=== PATIENT | male | born 1960 | race Caucasian/White ===

== ENCOUNTER 2016-11-13 12:04 | Emergency (ER) | payer BC ==
[2016-11-13 12:36] VITALS: BP 125/57
--- NOTE | 2016-11-13 12:59 | UC ---
UC General HPI - HPI Summary HPI Summary: patient has irritation on the right upper back where he has had shingles in the past. he has a cough and noticed blood tinged sputum this morning. - History of Current Complaint Chief Complaint: UCRespiratory Stated Complaint: SINUS COMPLAINT,COUGH Time Seen by Provider: 11/13/16 12:35 Hx Obtained From: Patient Onset/Duration: Sudden Onset, Lasting Days Timing: Constant Onset Severity: Mild Current Severity: Mild Associated Signs & Symptoms: Positive: Cough - Allergy/Home Medications Allergies/Adverse Reactions: Allergies Allergy/AdvReac Type Severity Reaction Status Date / Time Codeine AdvReac Intermediate STOMACH Verified 11/13/16 12:36 BLOATS PMH/Surg Hx/FS Hx/Imm Hx Previously Healthy: Yes Endocrine History Of: Reports: Diabetes Denies: Thyroid Disease Cardiovascular History Of: Reports: Cardiac Disorders - [place] x2, Hypertension Denies: Pacemaker/ICD, Congestive Heart Failure, Deep Vein Thrombosis Respiratory History Of: Denies: Asthma GI/ History Of: Reports: Ulcer - gastric, Kidney Stones Denies: Gastrointestinal Bleed, Gall Bladder Disease Neurological History Of: Denies: TIA, CVA, Dementia, Seizures, Migraine Other History Of: Anticoagulant Therapy - Surgical History Surgical History: Yes Surgery Procedure, Year, and Place: CARDIAC STENT X 8. RT ORIF ankle AND TIBIA. LT CLAVICLE ORIF. vasectomy. sinus surgeries x2 - Family History Known Family History: Positive: Cardiac Disease - Social History Alcohol Use: Rare Alcohol Amount: a few beers on the weekens Substance Use Type: None Smoking Status (MU): Former Smoker Type: Cigarettes Amount Used/How Often: 1.5 ppd Length of Time of Smoking/Using Tobacco: 20 + yrs Have You Smoked in the Last Year: No When Did the Patient Quit Smoking/Using Tobacco: 1996 - Immunization History Most Recent Influenza Vaccination: [id number] Most Recent Tetanus Shot: W/IN LAST 10 Most Recent Pneumonia Vaccination: NONE Review of Systems Constitutional: Negative Skin: Negative Eyes: Negative ENT: Negative Respiratory: Shortness Of Breath, Cough Gastrointestinal: Negative Genitourinary: Negative Motor: Negative Neurovascular: Other - irritation on back Musculoskeletal: Negative Neurological: Negative Psychological: Negative All Other Systems Reviewed And Are Negative: Yes Physical Exam Triage Information Reviewed: Yes Appearance: Well-Appearing, Well-Nourished, Pain Distress Vital Signs: Initial Vital Signs Temp 98.4 F 11/13/16 12:26 Pulse 51 11/13/16 12:26 Resp 16 11/13/16 12:26 BP 125/57 11/13/16 12:26 Pulse Ox 96 11/13/16 12:26 Vital Signs Reviewed: Yes Eye Exam: Normal Eyes: Positive: Conjunctiva Clear ENT Exam: Normal ENT: Positive: Normal ENT inspection, Hearing grossly normal, Pharynx normal, TMs normal Dental Exam: Normal Neck exam: Normal Neck: Positive: Supple, Nontender, No Lymphadenopathy Respiratory: Positive: Chest non-tender, No respiratory distress, No accessory muscle use, Wheezing, Inspiration Cardiovascular Exam: Normal Cardiovascular: Positive: RRR, No Murmur, Pulses Normal Abdominal Exam: Normal Abdomen Description: Positive: Nontender, No Organomegaly, Soft Bowel Sounds: Positive: Present Musculoskeletal Exam: Normal Musculoskeletal: Positive: Strength Intact, ROM Intact, No Edema Neurological Exam: Normal Neurological: Positive: Alert, Muscle Tone Normal Psychological Exam: Normal Skin: Positive: Other - no rashed or erythema noted, no pain with palpation over the right upper back. Course/Dx - Course Course Of Treatment: hx obtained, exam performed, meds reviewed, prednisone given for infallmation reduction of bronchioles and possible neuritis of past shingles - Differential Dx - Multi-Symptom Provider Diagnoses: wheezing. nerve pain. hx of shingles Discharge - Discharge Plan Condition: Stable Disposition: HOME Prescriptions: Albuterol HFA INHALER* [Ventolin HFA Inhaler*] 2 puff INH Q4H PRN #1 mdi PRN Reason: Cough predniSONE TAB* [Deltasone TAB*] 40 mg PO DAILY #10 tab Patient Education Materials: Wheezing (ED) Referrals: Bia Whyte MD [Primary Care Provider] - Additional Instructions: Take the medication as prescribed. increase your fluid intake and get plenty of rest.
== END 2016-11-13 13:07 | disposition home or self-care (01) ==
LOC: UCCORT 12:04
DX: R06.2 Wheezing (principal); M79.2 Neuralgia and neuritis, unspecified; R21 Rash and other nonspecific skin eruption; Z86.19 Personal history of other infectious and parasitic diseases; I25.2 Old myocardial infarction; I10 Essential (primary) hypertension; Z95.5 Presence of coronary angioplasty implant and graft; Z88.5 Allergy status to narcotic agent; Z87.891 Personal history of nicotine dependence
CPT/HCPCS: 99212; G0463

== ENCOUNTER 2017-09-01 11:23 | Emergency (ER) | payer BC ==
[2017-09-01 11:49] VITALS: BP 135/64
--- NOTE | 2017-09-01 13:00 | UC ---
Complaint Male HPI - HPI Summary HPI Summary: c/o frequency, pain in testicles, pelvic area but no dysuria, denies fever/ chills - History of Current Complaint Chief Complaint: UCGU Stated Complaint: URINARY Time Seen by Provider: 09/01/17 12:58 Hx Obtained From: Patient Onset/Duration: Sudden Onset Timing: Constant Severity Initially: Mild Severity Currently: Mild Location: Groin Aggravating Factor(s): Voiding Associated Signs And Symptoms: Positive: Negative - Allergies/Home Medications Allergies/Adverse Reactions: Allergies Allergy/AdvReac Type Severity Reaction Status Date / Time Codeine AdvReac Intermediate STOMACH Verified 09/01/17 11:49 BLOATS PMH/Surg Hx/FS Hx/Imm Hx Previously Healthy: Yes Endocrine History: Diabetes, Dyslipidemia Cardiovascular History: Cardiac Disease, Hypertension GI/ History: Gastroesophageal Reflux Other History Of: Anticoagulant Therapy - Surgical History Surgical History: Yes Surgery Procedure, Year, and Place: CARDIAC STENT X 8. RT ORIF ankle AND TIBIA. LT CLAVICLE ORIF. vasectomy. sinus surgeries x2 - Family History Known Family History: Positive: Cardiac Disease - Social History Alcohol Use: Rare Alcohol Amount: a few beers on the weekens Substance Use Type: None Smoking Status (MU): Former Smoker Type: Cigarettes Amount Used/How Often: 1.5 ppd Length of Time of Smoking/Using Tobacco: 20 + yrs Have You Smoked in the Last Year: No When Did the Patient Quit Smoking/Using Tobacco: 1996 - Immunization History Most Recent Influenza Vaccination: [id number] Most Recent Tetanus Shot: W/IN LAST 10 Most Recent Pneumonia Vaccination: NONE Review of Systems Skin: Negative Eyes: Negative ENT: Negative Respiratory: Negative Cardiovascular: Negative Gastrointestinal: Abdominal Pain Genitourinary: Frequency, Vaginal/Penile Pain Neurological: Negative Psychological: Negative Is Patient Immunocompromised?: No All Other Systems Reviewed And Are Negative: Yes Physical Exam Triage Information Reviewed: Yes Appearance: Well-Appearing Vital Signs: Initial Vital Signs Temp 98.4 F 09/01/17 11:45 Pulse 44 09/01/17 11:45 Resp 16 09/01/17 11:45 BP 135/64 09/01/17 11:45 Pulse Ox 98 09/01/17 11:45 Vital Signs Reviewed: Yes Respiratory Exam: Normal Abdominal Exam: Normal Bowel Sounds: Positive: Present Psychological Exam: Normal Skin Exam: Normal Complaint Male Course/Dx - Course Course Of Treatment: take abx 3 days as directed - discussed use and common side effects of med. increase fluid intake dialy to prevent dehydration. urine dip + blood and leukocytes. f/u if symptoms not resolving - Differential Dx/Diagnosis Provider Diagnoses: UTI Discharge - Discharge Plan Condition: Good Disposition: HOME Prescriptions: Sulfamethox/Trimethoprim DS* [Bactrim DS 800/160 TAB*] 1 tab PO BID 3 Days #6 tab Patient Education Materials: Urinary Tract Infection in Men (ED) Referrals: Bia Whyte MD [Primary Care Provider] - 1 Week
== END 2017-09-01 14:14 | disposition home or self-care (01) ==
LOC: UCCORT 11:23
DX: N39.0 Urinary tract infection, site not specified (principal); Z72.89 Other problems related to lifestyle; Z87.891 Personal history of nicotine dependence
CPT/HCPCS: 81003; 99212; G0463

== ENCOUNTER 2018-03-26 11:39 | Emergency (ER) | payer BC ==
[2018-03-26 12:06] VITALS: BP 101/44
--- NOTE | 2018-03-26 12:17 | UC ---
General HPI - HPI Summary HPI Summary: Patient is accompanied by his . He is complaining of 2 day history of cough with a little yellow sputum. Yesterday, he developed a subjective fever with chills and body aches. He admits to feeling short of breath but notes that any type of exertion makes him extremely short of breath. He also reports extreme fatigue and admits to occasional wheezing. He denies any history of asthma or COPD. He denies any associated chest pain. He admits to some mild swelling to his lower legs which she describes as chronic and unchanged. Patient is a known diabetic but didn't check his blood sugar this morning. This past medical history is also significant for unstable angina, hypertension and hyperlipidemia. 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 - History of Current Complaint Stated Complaint: COUGH/FEVER Time Seen by Provider: 03/26/18 12:01 Hx Obtained From: Patient, Family/Leak Hunter Onset/Duration: Gradual Onset Timing: Constant Associated Signs & Symptoms: Positive: Cough, Edema - chronic, Fever - subjective, SOB, Wheezing. Negative: Chest Pain, Nausea - Allergy/Home Medications Allergies/Adverse Reactions: Allergies Allergy/AdvReac Type Severity Reaction Status Date / Time codeine Allergy See Comment Verified 03/26/18 11:58 Home Medications: Home Medications guaiFENesin LIQ* [Robitussin*] 10 ml PO Q4H PRN 03/26/18 [History Confirmed ] PMH/Surg Hx/FS Hx/Imm Hx - Additional Past Medical History Additional PMH: DVT, CARLOS, PVC's Endocrine History: Diabetes, Dyslipidemia Cardiovascular History: Cardiac Disease, Hypertension Other History Of: Anticoagulant Therapy - Surgical History Surgical History: Yes Surgery Procedure, Year, and Place: CARDIAC STENT X 8. RT ORIF ankle AND TIBIA. LT CLAVICLE ORIF. vasectomy. sinus surgeries x2 - Family History Known Family History: Positive: Cardiac Disease - Social History Lives: With Family Alcohol Use: Rare Alcohol Amount: a few beers on the weekens Substance Use Type: None Smoking Status (MU): Former Smoker Type: Cigarettes Amount Used/How Often: 1.5 ppd Length of Time of Smoking/Using Tobacco: 20 + yrs Have You Smoked in the Last Year: No When Did the Patient Quit Smoking/Using Tobacco: 1996 - Immunization History Most Recent Influenza Vaccination: [id number] Most Recent Tetanus Shot: W/IN LAST 10 Most Recent Pneumonia Vaccination: NONE Vaccination Up to Date: Yes Review of Systems Constitutional: Fever, Chills, Fatigue Skin: Negative Eyes: Negative ENT: Negative Respiratory: Shortness Of Breath, Cough Cardiovascular: Negative Gastrointestinal: Negative Genitourinary: Negative Motor: Negative Neurovascular: Negative Musculoskeletal: Myalgia Neurological: Negative Psychological: Negative All Other Systems Reviewed And Are Negative: Yes Physical Exam Triage Information Reviewed: Yes Appearance: Well-Appearing Vital Signs Reviewed: Yes Eyes: Positive: Conjunctiva Clear ENT: Positive: Pharynx normal, Nasal congestion, TMs normal Neck: Positive: Supple, Nontender, No Lymphadenopathy, Other: - No JVD Respiratory: Positive: Lungs clear, Normal breath sounds, No respiratory distress Cardiovascular: Positive: RRR, No Murmur Abdomen Description: Positive: Nontender, No Organomegaly, Soft Bowel Sounds: Positive: Present Musculoskeletal: Positive: Edema @ - Mild to BLE'S(pt notes chronic with no change) Neurological: Positive: Alert Psychological: Positive: Age Appropriate Behavior Skin Exam: Normal Diagnostics - Laboratory Diagnostic Studies Completed/Ordered: non fasting 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 - Radiology No standard instances Radiology Interpretation Completed By: Radiologist - RIGHT MIDDLE LOBE INFILTRATE. - EKG Cardiac Rate: NL Cardiac Rhythm: Sinus: Normal Ectopy: PVCs - occasional ST Segment: Normal EKG Comparison: No Significant Change - 03/29/16 except for some pvc's Course/Dx - Course Course Of Treatment: Pneumonia RML on cxr. given comobid conditions, will transfer to ER. EMS offered but pt declined despite risk of mva, delay of care , worsening, disability and . he is a&o x3 and able to refuse and go by car thus I must respect this. [facility] ER called and report given to Dr Finley including CAD, DM and pneumonia with dyspnea. - Differential Dx - Multi-Symptom Provider Diagnoses: RML pneumonia. Dyspnea. Hx DM. Hx CAD with angina. Discharge - Sign-Out/Discharge Documenting (check all that apply): Patient Departure - Discharge Plan Condition: Stable Disposition: TRANS HIGHER LVL OF CARE FAC Referrals: Bia Whyte MD [Primary Care Provider] - Additional Instructions: GO FROM HERE TO THE [facility] DISCUSSED. - Billing Disposition and Condition Condition: STABLE Disposition: Trans Higher Lvl of Care Fac
--- NOTE | 2018-03-26 12:49 | RAD ---
INDICATION: Short of breath COMPARISON: Chest x-ray March 29, 2016 TECHNIQUE: PA and lateral dual-energy views were obtained. FINDINGS: Bones/Soft Tissues: There are no acute bony findings. There is ORIF of a left clavicular fracture, unchanged Cardiomediastinal: The cardiomediastinal silhouette is normal. Lungs: There is an interstitial infiltrate in the right middle lobe. The remaining lung ball are clear Pleura: There are no pleural effusions. Other: None IMPRESSION: RIGHT MIDDLE LOBE INFILTRATE.
== END 2018-03-26 13:07 | disposition short-term general hospital (02) ==
LOC: UCCORT 11:39
DX: J18.9 Pneumonia, unspecified organism (principal); R06.00 Dyspnea, unspecified; E11.9 Type 2 diabetes mellitus without complications; Z86.79 Personal history of other diseases of the circulatory system; I10 Essential (primary) hypertension; Z88.5 Allergy status to narcotic agent; I82.409 Acute embolism and thrombosis of unspecified deep veins of unspecified lower extremity; Z79.01 Long term (current) use of anticoagulants; Z87.891 Personal history of nicotine dependence
CPT/HCPCS: 71046; 93005; 99212; G0463

== ENCOUNTER 2018-06-02 13:52 | Emergency (ER) | payer BC ==
--- OUTSIDE RECORDS SUMMARY | 2018-06-02 14:05 | XMS REPORT ---
:1960 External Reference #:[id number] Author Organization [facility] 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 Ashley Wetzel, Active [facility] MSN, DIRECTOR OF LABOR RELATIONS Onset: 11/19/2015 Essential hypertension Ashley Wetzel, Active MSN, DIRECTOR OF LABOR RELATIONS Onset: 08/13/2012 Morbid obesity Ashley Wetzel, Active MSN, DIRECTOR OF LABOR RELATIONS Onset: 08/08/2011 Angina pectoris Konrad Johnston M.D., Active [facility] Onset: 05/10/2011 Cellulitis and abscess of lower Konrad Johnston M.D., Active limb FACC Onset: 05/10/2011 Dyspnea Konrad Johnston M.D., Active [facility]ACC Onset: 05/10/2011 Hyperlipidemia Konrad Johnston M.D., Active [facility] Onset: 05/10/2011 Benign essential hypertension Konrad Johnston M.D., Active FACC Onset: 05/10/2011 Coronary arteriosclerosis Konrad Johnston M.D., Active [facility] Family History Date Family Member(s) Problem(s) Comments : (age 65 Years) Father due to CAD Social History Type Date Description Comments Lives With Betty Chapa Patient follows no dietary restrictions Occupation Currently Working [employer] Independent with all ADL's Cigarette Use Former Cigarette Smoker 2 Packs Daily quit 10 years ago Cigarette Use Pack Years - 25 ETOH Use Occasionally consumes alcohol Daily Caffeine Consumes on average 2 cups of regular coffee per day Allergies, Adverse Reactions, Alerts Date Description Reaction Status Severity Comments 11/17/2008 Codeine/Acetaminophen active 07/27/2014 Codeine active Medications Medication Date Status Form Strength Qnty SIG Indications Ordering Provider Atorvastatin Active Tablets 80mg 90tabs 1 by E78.5 Wetzel, Calcium 017 mouth Ashley every [place], day MSN, DIRECTOR OF LABOR RELATIONS Nitroglycerin Active Patches 0.4mg/HR 90unit Apply I25.119 Kannan Johnston 24HR s For 12 Konrad Geronimo, Hours/Of M.DBinu, [facility] f For 12 Hours During The Day Isosorbide Active Tablets 20mg 180tab Take 1 I25.119 Preston Mononitrate 016 s Tablet Konrad Geronimo, Twice A M.DBinu, [facility] Day Aspirin Active Tablets 325mg 1 po qd R07.9 Wetzel, 011 ECTOR Salguero, DIRECTOR OF LABOR RELATIONS I25.119 782.0 Ranexa 12/22/2010 Active Tablets 1000mg 180tabs take one 786.51 Wetzel, ER 12HR tablet by Ashley mouth Reymundo, twice A MSN, DIRECTOR OF LABOR RELATIONS day Multivitamins Active Tablets 1 po qd Unknown Plavix Active Tablets 75mg 90tabs 1 po qd Unknown Bisoprolol Active Tablets 5mg 90tabs 1 po qd Wetzel, Fumarate ECTOR Salguero, DIRECTOR OF LABOR RELATIONS Meloxicam Active Tablets 15mg 30tabs 1 by Unknown mouth every day c food Ramipril Active Capsules 5mg 1 by I25.119 Damari, mouth Ashley every day ECTOR Dwyer, DIRECTOR OF LABOR RELATIONS Metformin HCL Active Tablets 500mg 1 tab by Unknown mouth twice a day Magnesium Oxide Active Tablets 400mg 1 by Unknown mouth every day Pantoprazole Active Tablets 40mg 90tabs Take 1 Wetzel, Sodium DR Tablet Ashley Daily ECTOR Dwyer, DIRECTOR OF LABOR RELATIONS Nitrostat Active Tablets 0.4mg 1 tab sl Unknown Sub every 5 min x3 chest pain prn Amoxicillin 08/16/2017 Hx Capsules 500mg 14caps 1 tab by J98.9 Wetzel, mouth Ashley twice a katarzyna Dwyer, DIRECTOR OF LABOR RELATIONS Atorvastatin 06/26/2016 - Hx Tablets 40mg 90tabs 1 by E78.5 Damari, Calcium 12/20/2016 mouth Ashley every day ECTOR Dwyer, DIRECTOR OF LABOR RELATIONS Nitro-Dur 04/03/2016 Hx Patches 0.4mg/H 14units on 12 hr/ Johana JohnstonR R off 12 haleigh Morgan M.D., [facility] during the day Isosorbide 03/27/2016 - Hx Tablets 10mg 120tabs 2 tabs by I25.119 Wetzel, Mononitrate 06/26/2016 mouth Ashley twice a katarzyna Dwyer, DIRECTOR OF LABOR RELATIONS Electronic BP 05/19/2015 Hx use once 401.1 Wetzel, Cuff daily. Ashley Dx HTN ECTOR Dwyer, DIRECTOR OF LABOR RELATIONS Isosorbide 06/12/2014 Hx Tablets 30mg 270tabs Take 2 I25.119 Davidenko, Mononitrate ER ER 24HR Tablets Konrad Geronimo By Lashell Salazar, [facility] Every Day In The Morning And 1 Tablet In The Evening as Directed 413.9 Atorvastatin 12/18/2012 Hx Tablets 80mg 90tabs Take One E78.5 Wetzel, Ashley Calcium Tablet By Lashell Dwyer, DIRECTOR OF LABOR RELATIONS Every Day Ramipril 12/18/2012 Hx Capsules 10mg 90caps Take One I25.119 Wetzel, Ashley Capsule By Lashell Dwyer, DIRECTOR OF LABOR RELATIONS Every Day Isosorbide 02/07/2012 - Hx Tablets 30mg 60tabs Take One 414.01 Preston, Dinitrate 06/12/2014 Tablet By Lashell Morgan M.D., [facility] Twice A Day 413.9 Isosorbide 01/30/2012 - Hx Tablets 20mg 1 1/2 tabs 414.01 Wetzel, Ashley Dinitrate 02/07/2012 by ECTOR Hurt, twice a day DIRECTOR OF LABOR RELATIONS 413.9 Ramipril 09/13/2011 - Hx Capsules 5mg 30caps Take One 414.01 Wetzel, Ashley 12/18/2012 Capsule By Lashell Dwyer Every [facility] Day Nitroglycerin 08/08/2011 - Hx Solution 0.4mg 1month one spray I25.119 Sinanenkita, Lingual 08/25/2016 /Spra under the nena Morgan tongue every M.DBinu, [facility] 5 min for chest pain. If not under formulary it may dispense sublingual tablets 0.4 mg Amlodipine 08/08/2011 - Hx Tablets 5mg 60tabs Take One 780.4 Preston, Besylate 05/19/2015 Tablet By Lashell Morgan Every M.DBinu, [facility] Day 401.1 Amlodipine 07/20/2011 - Hx Tablets 2.5mg 30tabs 1 tab by 786.50 Wetzel , Ashley Besylate 08/08/2011 mouth Reymundo, every day [facility] Isosorbide 12/22/2010 - Hx Tablets 20mg 60tabs Take One 414.01 Wetzel, Ashley Dinitrate 01/30/2012 Tablet By Lashell Dwyer [facility] Twice A Day 413.9 Ranexa 12/07/2010 Hx Tablets ER 500mg 60tabs 1 po 786.51 Preston, 12HR bid Konrad Geronimo M.D., [facility] Isosorbide 12/13/2009 - Hx Tablets 10mg 60tabs 1 po 786.51 Preston, Dinitrate 12/22/2010 bid Konrad Geronimo M.D., [facility] 414.01 Fexofenadine HCL Hx Tablets 60mg po qd Unknown Aspirin Ec - 07/20/[address] 81mg 1 po qd 786.50 Unknown 414.01 782.0 Naproxen Hx Tablets 500mg 60tabs 1 po bid Unknown Nexium Hx Capsules DR 40mg 90caps 1 po qd Unknown Simvastatin Hx Tablets 80mg 90tabs 1 po qd Unknown Metoprolol Hx Tablets ER 25mg 90tabs 1 po qd Unknown Succinate ER 24HR Ramipril Hx Capsules 5mg 60caps 1 po qd Unknown Nitrostat Hx Tablets Sub 0.4mg 25tabs 1 tab sl Wetzel, q 5 min Ashley x3 chest bradford Dwyer MSN, DIRECTOR OF LABOR RELATIONS Metformin HCL Hx Tablets 500mg 60tabs 1 tab po Unknown bid Simvastatin - Hx Tablets 40mg tab by 272. Damari, 12/18/2012 mouth 4 Ashley every day ECTOR Dwyer, DIRECTOR OF LABOR RELATIONS Lansoprazole Hx Capsules DR 30mg 30caps by mouth Unknown every day Clopidogrel Hx Tablets 75mg Unknown Bisulfate Lovastatin - Hx Tablets 40mg 90tabs 1 by E78. Damari, 06/26/2016 mouth 5 Ashley every day ECTOR Dwyer, DIRECTOR OF LABOR RELATIONS Isosorbide - Hx Tablets 10mg 1 by I25. Damari Mononitrate 03/27/2016 mouth 119 Ashley twice a katarzyna Dwyer MSN, DIRECTOR OF LABOR RELATIONS Vital Signs Date Vital Result Comment 05/22/2018 BP Systolic Sitting Left Arm 124 mmHg BP Diastolic Sitting Left Arm 80 mmHg Heart Rate 42 /min Respiratory Rate 18 /min Height 68 inches 5'8" Weight 301.00 lb BMI (Body Mass Index) 45.8 kg/m2 BSA (Body Surface Area) 2.43 m2 [place] body weight in kilograms 70 O2 % BldC Oximetry 97 % room air 04/29/2018 BP Systolic Sitting Left Arm 114 mmHg BP Diastolic Sitting Left Arm 86 mmHg Heart Rate 55 /min Respiratory Rate 18 /min Weight 303.00 lb O2 % BldC Oximetry 95 % Ora 02/18/2018 BP Systolic 136 mmHg left BP Diastolic 80 mmHg left Heart Rate 30 /min Respiratory Rate 19 /min Weight 300.00 lb O2 % BldC Oximetry 94 % Ra 08/16/2017 BP Systolic Sitting Right Arm 122 mmHg BP Diastolic Sitting Right Arm 66 mmHg Respiratory Rate 16 /min Height 68 inches 5'8" Weight 301.00 lb BMI (Body Mass Index) 45.8 kg/m2 BSA (Body Surface Area) 2.43 m2 [place] body weight in kilograms 70 12/20/2016 BP Systolic Sitting Left Arm 124 mmHg BP Diastolic Sitting Left Arm 86 mmHg Heart Rate 62 /min Respiratory Rate 18 /min Height 68 inches 5'8" Weight 311.00 lb BMI (Body Mass Index) 47.3 kg/m2 BSA (Body Surface Area) 2.47 m2 06/19/2016 BP Systolic Sitting Right Arm 114 mmHg BP Diastolic Sitting Right Arm 72 mmHg Heart Rate 70 /min Respiratory Rate 16 /min Height 68 inches 5'8" Weight 304.00 lb BMI (Body Mass Index) 46.2 kg/m2 BSA (Body Surface Area) 2.44 m2 [place] body weight in kilograms 70 04/03/2016 BP Systolic 110 mmHg BP Diastolic 78 mmHg Heart Rate 66 /min Respiratory Rate 18 /min Weight 302.38 lb 03/27/2016 BP Systolic 130 mmHg BP Diastolic 90 mmHg Heart Rate 65 /min Height 67 inches 5'7" Weight 304.50 lb BMI (Body Mass Index) 47.7 kg/m2 BSA (Body Surface Area) 2.42 m2 11/19/2015 BP Systolic Sitting Left Arm 112 mmHg BP Diastolic Sitting Left Arm 76 mmHg Heart Rate 52 /min Height 67 inches 5'7" Weight 303.00 lb BMI (Body Mass Index) 47.5 kg/m2 BSA (Body Surface Area) 2.41 m2 05/19/2015 BP Systolic Sitting Right Arm 114 mmHg BP Diastolic Sitting Right Arm 68 mmHg Heart Rate 68 /min Respiratory Rate 16 /min Height 68 inches 5'8" Weight 312.00 lb BMI (Body Mass Index) 47.4 kg/m2 BSA (Body Surface Area) 2.47 m2 01/05/2015 Height 68 inches 5'8" Weight 293.00 lb BMI (Body Mass Index) 44.5 kg/m2 BSA (Body Surface Area) 2.40 m2 11/11/2014 BP Systolic Sitting Right Arm 130 mmHg BP Diastolic Sitting Right Arm 64 mmHg Heart Rate 60 /min Respiratory Rate 16 /min Height 67 inches 5'7" Weight 303.00 lb BMI (Body Mass Index) 47.5 kg/m2 BSA (Body Surface Area) 2.41 m2 08/12/2014 BP Systolic Sitting Left Arm 122 mmHg BP Diastolic Sitting Left Arm 70 mmHg Heart Rate 60 /min Respiratory Rate 20 /min Height 67 inches 5'7" Weight 312.00 lb BMI (Body Mass Index) 48.9 kg/m2 BSA (Body Surface Area) 2.44 m2 06/12/2014 BP Systolic Sitting Left Arm 112 mmHg BP Diastolic Sitting Left Arm 72 mmHg Heart Rate 64 /min Respiratory Rate 16 /min Height 67 inches 5'7" Weight 303.00 lb BMI (Body Mass Index) 47.5 kg/m2 BSA (Body Surface Area) 2.41 m2 03/02/2014 BP Systolic Sitting Left Arm 110 mmHg BP Diastolic Sitting Left Arm 66 mmHg Heart Rate 74 /min Respiratory Rate 14 /min Height 67 inches 5'7" Weight 305.00 lb BMI (Body Mass Index) 47.8 kg/m2 BSA (Body Surface Area) 2.42 m2 08/19/2013 BP Systolic Sitting Right Arm 120 mmHg BP Diastolic Sitting Right Arm 84 mmHg Heart Rate 52 /min Respiratory Rate 16 /min Height 67 inches 5'7" Weight 299.00 lb BMI (Body Mass Index) 46.8 kg/m2 BSA (Body Surface Area) 2.40 m2 03/18/2013 BP Systolic Sitting Right Arm 118 mmHg BP Diastolic Sitting Right Arm 74 mmHg Heart Rate 74 /min Respiratory Rate 16 /min Height 67 inches 5'7" Weight 290.00 lb BMI (Body Mass Index) 45.4 kg/m2 BSA (Body Surface Area) 2.37 m2 12/18/2012 BP Systolic Sitting Right Arm 122 mmHg BP Diastolic Sitting Right Arm 62 mmHg Heart Rate 76 /min Respiratory Rate 16 /min Height 67 inches 5'7" Weight 293.00 lb BMI (Body Mass Index) 45.9 kg/m2 BSA (Body Surface Area) 2.38 m2 09/13/2012 BP Systolic Sitting Right Arm 136 mmHg BP Diastolic Sitting Right Arm 80 mmHg Heart Rate 80 /min Respiratory Rate 18 /min Height 67.5 inches 5'7.50" Weight 303.00 lb BMI (Body Mass Index) 46.8 kg/m2 08/13/2012 BP Systolic Sitting Left Arm 122 mmHg BP Diastolic Sitting Left Arm 76 mmHg Heart Rate 62 /min Respiratory Rate 16 /min Height 67.5 inches 5'7.50" Weight 296.00 lb BMI (Body Mass Index) 45.7 kg/m2 02/07/2012 BP Systolic Sitting Right Arm 110 mmHg BP Diastolic Sitting Right Arm 64 mmHg Heart Rate 66 /min Respiratory Rate 16 /min Height 67.5 inches 5'7.50" Weight 289.00 lb BMI (Body Mass Index) 44.6 kg/m2 01/30/2012 BP Systolic Sitting Right Arm 126 mmHg BP Diastolic Sitting Right Arm 76 mmHg Heart Rate 59 /min Respiratory Rate 16 /min Height 67.5 inches 5'7.50" Weight 289.00 lb BMI (Body Mass Index) 44.6 kg/m2 09/13/2011 BP Systolic Sitting Right Arm 126 mmHg BP Diastolic Sitting Right Arm 68 mmHg Heart Rate 88 /min Respiratory Rate 16 /min Height 67.5 inches 5'7.50" Weight 297.00 lb BMI (Body Mass Index) 45.8 kg/m2 08/08/2011 BP Systolic Sitting Left Arm 132 mmHg BP Diastolic Sitting Left Arm 68 mmHg Heart Rate 84 /min Respiratory Rate 18 /min Height 67.5 inches 5'7.50" Weight 308.00 lb BMI (Body Mass Index) 47.5 kg/m2 07/20/2011 BP Systolic Sitting Right Arm 132 mmHg BP Diastolic Sitting Right Arm 80 mmHg Heart Rate 53 /min regular Respiratory Rate 16 /min Height 67.5 inches 5'7.50" Weight 309.00 lb BMI (Body Mass Index) 47.7 kg/m2 05/10/2011 BP Systolic Sitting Left Arm 122 mmHg BP Diastolic Sitting Left Arm 78 mmHg Respiratory Rate 16 /min Height 67.5 inches 5'7.50" Weight 313.00 lb BMI (Body Mass Index) 48.3 kg/m2 01/04/2011 BP Systolic Sitting Left Arm 128 mmHg BP Diastolic Sitting Left Arm 86 mmHg Heart Rate 64 /min Respiratory Rate 18 /min Height 67.5 inches 5'7.50" Weight 319.00 lb BMI (Body Mass Index) 49.2 kg/m2 12/22/2010 BP Systolic Sitting Right Arm 120 mmHg BP Diastolic Sitting Right Arm 84 mmHg Heart Rate 68 /min Regular Respiratory Rate 18 /min Height 67.5 inches 5'7.50" Weight 320.00 lb BMI (Body Mass Index) 49.4 kg/m2 12/07/2010 BP Systolic Sitting Right Arm 150 mmHg BP Diastolic Sitting Right Arm 84 mmHg Heart Rate 56 /min Respiratory Rate 20 /min Height 67.5 inches 5'7.50" Weight 316.00 lb BMI (Body Mass Index) 48.8 kg/m2 Results Test Date Test Result H/L Range Note aPTT 02/07/2017 aPTT 27.4 s 22.0 - 32.6 Type and screen 02/07/2017 Antibody Screen Negative Patient Abo/Rh O Positive Specimen Expiration Date 02/10/2017 Testing site Performed At [address] [place] [address] [id number] Protime-Inr 02/07/2017 Inr 1.08 1 Protime 11.2 s 9.2 - 11.9 Magnesium 02/07/2017 Magnesium 1.9 mg/dL 1.7 - 2.4 Lipid panel 02/07/2017 Chol/HDL Ratio 2.9 Ratio Cholesterol 130 mg/dL 0 - 200 HDL 45 mg/dL >40 LDL Calculated 59 mg/dL <130 Triglycerides 128 mg/dL 30 - 200 Lipase 02/07/2017 Lipase 89 U/L 65 - 230 Hemoglobin A1c 02/07/2017 Est. Average Glucose 151 mg/dL Hemoglobin A1c 6.9 % High 4.0 - 6.0 Comprehensive metabolic panel 02/07/2017 Alb/Glob ratio 1.0 Ratio Albumin 3.3 g/dL Low 3.5 - 4.6 Alkaline Phosphatase 60 U/L 45 - 117 Alt 39 U/L 12 - 78 Anion Gap 6 mmol/L Low 7 - 16 Ast 17 U/L 11 - 39 BUN/Creatinine Ratio 15.0 Ratio 10.0 - 20.0 Bilirubin, Total 0.7 mg/dL 0.0 - 1.0 Calcium 8.4 mg/dL 8.4 - 10.2 Chloride 109 mmol/L High 100 - 108 Co2 28 mmol/L 22 - 31 Creatinine 1.13 mg/dL 0.80 - 1.30 GFR MDRD Af Amer >60 >59 ml/min/1.73m2 GFR MDRD Non Af Amer >60 >59 ml/min/1.73m2 Globulin 3.2 g/dL 2.7 - 4.3 Glom Filt Rate, Est See Notes Glucose 138 mg/dL High 70 - 99 Potassium 4.0 mmol/L 3.6 - 5.2 Protein, Total 6.5 g/dL 6.4 - 8.2 Sodium 143 mmol/L 136 - 145 Urea nitrogen 17 mg/dL 7 - 24 CBC and differential 02/07/2017 Basophils Absolute 0.1 10*3/uL 0.0 - 0.2 Basophils Relative 0.9 % 0.0 - 4.0 Eosinophils Absolute 0.2 10*3/uL 0.0 - 0.5 Eosinophils Relative 2.6 % 0.0 - 5.0 Hematocrit 42.8 % 41.0 - 53.0 Hemoglobin 14.8 g/dL 13.5 - 18.0 Lymphocytes Absolute 3.2 10*3/uL 1.2 - 4.8 Lymphocytes Relative 39.6 % 16.0 - 52.0 MCH 32.6 pg High 27.0 - 32.0 MCHC 34.5 g/dL 32.0 - 36.0 MCV 94.5 fL 80.0 - 95.0 MPV 7.9 fL 7.1 - 10.7 Monocytes Absolute 0.8 10*3/uL 0.0 - 0.8 Monocytes Relative 9.6 % High 0.0 - 8.0 Neutrophils % 47.3 % 35.0 - 75.0 Neutrophils Absolute 3.9 10*3/uL 1.8 - 7.7 Platelets 203 10*3/uL 150 - 450 RBC 4.53 10*6/uL Low 4.60 - 6.10 RDW 13.0 % 10.5 - 14.5 WBC 8.2 10*3/uL 4.1 - 11.0 B-type natriuretic 02/07/2017 B natriuretic peptide 128 pg/mL High 0 - 100 peptide Troponin I 02/07/2017 Troponin I <0.06 0.00 - 0.10 ng/mL LDL Cholesterol 02/02/2017 Cholesterol 110 mg/dL <200 1, 2 Profile Triglycerides 99 mg/dL <150 1, 3 HDL Cholesterol 39 mg/dL Low >40 1, 4 LDL-Cholesterol 51 mg/dL < 100 1, 5 Liver Function Tests 02/02/2017 Total Protein 6.6 g/dL 6.4-8.2 1 Albumin 3.4 g/dL 3.4-5.0 1 Globulin 3.2 g/dL 1.9-4.3 1 Alb/Glob 1.1 ratio 1 Bilirubin,Total 0.6 mg/dL 0.2-1.0 1 Bilirubin,Direct 0.2 mg/dL 0.0-0.2 1 Bilirubin,Indirect 0.4 mg/dL 0.0-0.9 1 Sgot/Ast 17 U/L 15-37 1 SGPT/Alt 39 U/L 12-78 1 Alkaline Phosphatase 62 U/L 45-117 1 Comprehensive Metabolic Panel 06/24/2016 Glucose 147 mg/dL High 74-106 6 BUN 19 mg/dL High 7-18 6 Creatinine 1.0 mg/dL 0.6-1.3 6 Glom Filtration Rate, Estimate >60 mL/min >60 6 If >60 mL/min >60 6, 7 BUN/Creat 19.0 ratio 6 Sodium 139 mmol/L 136-145 6 Potassium 4.2 mmol/L 3.5-5.1 6 Chloride 108 mmol/L High 98-107 6 Carbon Dioxide 24 mmol/L 21-32 6 Anion Gap 7 mEq/L Low 8-16 6 Calcium 8.3 mg/dL Low 8.5-10.1 6 Total Protein 6.9 g/dL 6.4-8.2 6 Albumin 3.6 g/dL 3.4-5.0 6 Globulin 3.3 g/dL 1.9-4.3 6 Alb/Glob 1.1 ratio 6 Bilirubin,Total 0.6 mg/dL 0.2-1.0 6 Sgot/Ast 16 U/L 15-37 6 SGPT/Alt 35 U/L 12-78 6 Alkaline Phosphatase 51 U/L 45-117 6 @[facility] Pat Id: [id number] @[facility] Req #: [id number] 6 Is Patient Fasting? Fasting 6 Magnesium 06/24/2016 Magnesium 2.2 mg/dL 1.8-2.4 6 @[facility] Pat Id: [id number] 6 @[facility] Req #: [id number] 6 Is Patient Fasting? Fasting 6 CBS W/Automated Diff 06/24/2016 White Blood Count 5.7 K/uL 3.4-10.5 6 Red Blood Count 4.63 M/uL 4.20-5.80 6 Hemoglobin 15.4 gm/dL 12.8-17.0 6 Hematocrit 43.1 % 38.0-48.0 6 Mean Cell Volume 93.1 fl 80.0-96.0 6 Mean Corpuscular HGB 33.3 pg High 27.0-33.0 6 Mean Corpuscular HGB Conc 35.7 g/dL 31.7-36.0 6 Platelet Count 202 K/uL 150-400 6 Red Cell Distri Width SD 40.6 fl 36-51 6 Red Cell Distri Width %CV 12.2 % 11.6-15.8 6 Mean Platelet Volume 10.2 fL 6.6-10.6 6 Neut% 49.5 % 33.0-73.0 6 Lymph % 32.6 % 17.0-56.0 6 Sawyer % 11.0 % High 0.0-10.0 6 Eo% 6.0 % High 0.0-5.0 6 Bas% 0.9 % 0.1-1.0 6 Neut# 2.83 K/uL 1.8-7.0 6 Lymph # 1.86 K/uL 1.8-7.0 6 Sawyer # 0.63 K/uL 0.0-0.8 6 Eos # 0.34 K/uL 0.0-0.5 6 Baso # 0.05 K/uL Low 0.1-0.2 6 @[facility] Pat Id: [id number] 6 @[facility] Req #: [phone] 6 LDL Cholesterol Profile 06/24/2016 Cholesterol 163 mg/dL <200 6, 8 Triglycerides 123 mg/dL <150 6, 9 HDL Cholesterol 50 mg/dL >40 6, 10 LDL-Cholesterol 88 mg/dL < 100 6, 11 @[facility] Pat Id: [id number] 6 @[facility] Req #: [id number] 6 Is Patient Fasting? Fasting 6 Laboratory test finding 07/28/2014 Laboratory Results < 0.02 - Laboratory test finding 07/27/2014 Laboratory Results 2.25 1.2 - 4.0 Laboratory test finding 07/21/2014 Laboratory Results 6.8 High 4.2 - 6.3 LDL Cholesterol Profile 08/15/2012 Cholesterol 166 mg/dL 120-200 Triglycerides 147 mg/dL 16-231 HDL Cholesterol 43 mg/dL 29-83 LDL-Cholesterol 94 mg/dL 62-185 CBS W/Automated Diff 08/15/2012 White Blood Count 8.0 K/uL 3.4-10.5 Red Blood Count 4.67 M/uL 4.20-5.80 Hemoglobin 15.3 gm/dL 12.8-17.0 Hematocrit 42.2 % 38.0-48.0 Mean Cell Volume 90.4 fl 80.0-96.0 Mean Corpuscular HGB 32.8 pg 27.0-33.0 Mean Corpuscular HGB Conc 36.3 g/dL High 31.7-36.0 Platelet Count 283 K/uL 150-400 Red Cell Distri Width SD 39.1 fl 36-51 Red Cell Distri Width %CV 12.2 % 11.6-15.8 Mean Platelet Volume 9.5 fL 6.6-10.6 Neut% 54.9 % 33.0-73.0 Lymph % 32.0 % 17.0-56.0 Sawyer % 9.6 % 0.0-10.0 Eo% 3.0 % 0.0-5.0 Bas% 0.5 % 0.1-1.0 Neut# 4.41 K/uL 1.8-7.0 Lymph # 2.57 K/uL 1.2-4.0 Sawyer # 0.77 K/uL High 0.0-0.6 Eos # 0.24 K/uL 0.0-0.5 Baso # 0.04 K/uL Low 0.1-0.2 Liver Function Tests 08/15/2012 Total Protein 7.7 g/dL 6.3-8.0 Albumin 4.4 g/dL 3.5-5.0 Globulin 3.3 g/dL 1.9-4.3 Alb/Glob 1.3 ratio Bilirubin,Total 0.7 mg/dL 0.2-1.2 Bilirubin,Direct 0.1 mg/dL 0.1-0.4 Bilirubin,Indirect 0.6 mg/dL 0.0-0.9 Sgot/Ast 22 U/L 16-40 SGPT/Alt 38 U/L 30-65 Alkaline Phosphatase 55 U/L 50-136 Basic Metabolic Panel 08/15/2012 Glucose 113 mg/dL 76-115 BUN 19 mg/dL 5-23 Creatinine 0.8 mg/dL 0.5-1.4 Glom Filtration Rate, Estimate >60 mL/min >60 If >60 mL/min >60 12 BUN/Creat 23.7 ratio Sodium 136 mmol/L 136-145 Potassium 4.1 mmol/L 3.5-5.1 Chloride 103 mmol/L 98-107 Carbon Dioxide 24 mEq/L 18-29 Anion Gap 13 mEq/L 8-16 Calcium 9.3 mg/dL 8.5-10.1 1 E78.5 2 Reference Guidelines*: Desirable: ........... < 200 mg/dL Borderline High: ..... 200-239 mg/dL High: ................ >=240 mg/dL * The National Cholesterol Education Program (NCEP) 3 Reference Guidelines*: Normal: ............. < 150 mg/dL Borderline High: .... 150-199 mg/dL High: ............... 200-499 mg/dL Very High: .......... > 500 mg/dL * Source: National Cholesterol Education Program (NCEP) 4 Reference Guidelines*: Low HDL: ..... < 40 mg/dL Normal: ..... 40-60 mg/dL Desirable: ... > 60 mg/dL *The National Cholesterol Education Program(NCEP) 5 Reference Guidelines*: Optimal:........... <100 mg/dL Near Optimal....... 100-129 mg/dL Borderline High.... 130-159 mg/dL High............... 160-189 mg/dL Very High.......... >=190 mg/dL * Source: National Cholesterol Education Program (NCEP) 6 I25.10 I10 7 Note: Persistent reduction for 3 months or more in an eGFR <60 mL/min/1.73 m2 defines CKD. Patients with eGFR values >/=60 mL/min/1.73 m2 may also have CKD if evidence of persistent proteinuria is present. The original MDRD equation for estimated GFR is not valid for patients less than 18 years of age. Additional information may be found at www.kdoqi.org. 8 Reference Guidelines*: Desirable: ........... < 200 mg/dL Borderline High: ..... 200-239 mg/dL High: ................ >=240 mg/dL * The National Cholesterol Education Program (NCEP) 9 Reference Guidelines*: Normal: ............. < 150 mg/dL Borderline High: .... 150-199 mg/dL High: ............... 200-499 mg/dL Very High: .......... > 500 mg/dL * Source: National Cholesterol Education Program (NCEP) 10 Reference Guidelines*: Low HDL: ..... < 40 mg/dL Normal: ..... 40-60 mg/dL Desirable: ... > 60 mg/dL *The National Cholesterol Education Program(NCEP) 11 Reference Guidelines*: Optimal:........... <100 mg/dL Near Optimal....... 100-129 mg/dL Borderline High.... 130-159 mg/dL High............... 160-189 mg/dL Very High.......... >=190 mg/dL * Source: National Cholesterol Education Program (NCEP) 12 Note: Persistent reduction for 3 months or more in an eGFR <60 mL/min/1.73 m2 defines CKD. Patients with eGFR values >/=60 mL/min/1.73 m2 may also have CKD if evidence of persistent proteinuria is present. The original MDRD equation for estimated GFR is not valid for patients less than 18 years of age. Additional information may be found at www.kdoqi.org. Procedures Date CPT Code Description Status 04/29/2018 81497 EKG-Tracing And Report Completed 02/18/2018 83626 EKG-Tracing And Report Completed 08/16/2017 07713 EKG-Tracing And Report Completed 04/24/2017 46844 EKG Interpretation And Report Only Completed 04/24/2017 01035 EKG Interpretation And Report Only Completed 06/23/2016 27691 Echocardiogram Complete Completed 03/27/2016 22005 EKG-Tracing And Report Completed 01/05/2015 46479 Nerve Conduction 7-8 Studies Completed 01/05/2015 03702 Needle Electromyography Complete, Five Or More Muscles Completed Studied 08/03/2014 08310 Stress Test Interpre And Report Only Completed 08/03/2014 02519 Stress Test Physician Super Only Completed 08/03/2014 90870 Stress Test Physician Super Only Completed 08/03/2014 71391 Myocardial Imaging Tomographic Multiple Study AT Rest Completed Or Stress 06/12/2014 03643 EKG-Tracing And Report Completed 12/18/2012 17561 EKG-Tracing And Report Completed 09/13/2012 69939 EKG-Tracing And Report Completed 01/30/2012 60884 EKG-Tracing And Report Completed 08/08/2011 02337 EKG-Tracing And Report Completed 07/20/2011 71638 EKG-Tracing And Report Completed 07/17/2011 31847 EKG Interpretation And Report Only Completed 12/14/2010 36366 Stress Test Interpre And Report Only Completed 12/14/2010 77910 Stress Test Physician Super Only Completed 12/14/2010 70830 Myocardial Imaging Tomographic Multiple Study AT Rest Completed Or Stress 12/07/2010 50658 EKG-Tracing And Report Completed 07/23/2009 32044 Echocardiogram Complete Completed 03/26/2008 38311 Stress Test Interpre And Report Only Completed 03/26/2008 18582 Ejection Fraction Completed 03/26/2008 67106 Myocardial Wall Motion Completed 03/26/2008 51353 Cardiolite Stress/Rest Spect Completed 02/08/2007 73228 Nasal Endoscopy, Diag. Completed Encounters Type Date Location Provider CPT E/M Dx Office Visit 05/22/2018 3:00p Cardiology Office Ashley Wetzel 55323 I49.3 Reymundo, ECTOR, DIRECTOR OF LABOR RELATIONS R00.1 I25.119 E78.5 I10 Office Visit 04/29/2018 3:20p Cardiology Office Ashley Wetzel, 21393 I49.3 MSN, DIRECTOR OF LABOR RELATIONS I25.10 E78.5 Office Visit 02/18/2018 3:20p Cardiology Office Ashley Wetzel, 59672 I25.10 MSN, DIRECTOR OF LABOR RELATIONS E78.5 I10 I49.3 Office Visit 08/16/2017 3:20p Cardiology Office Ashley Wetzel, 96232 J98.9 MSN, DIRECTOR OF LABOR RELATIONS I25.10 E78.5 I10 Office Visit 12/20/2016 8:00a Cardiology Office Ashley Wetzel, 79271 I25.10 MSN, DIRECTOR OF LABOR RELATIONS E78.5 I10 R42 G47.8 E66.01 Office Visit 06/19/2016 3:00p Cardiology Office Ashley Wetzel, 00451 I25.10 MSN, DIRECTOR OF LABOR RELATIONS E78.5 I10 K21.9 R01.1 Office Visit 04/03/2016 8:00a Cardiology Office Konrad Johnston, 64279 I25.10 Marie, FACC E78.5 I10 E66.01 Office Visit 03/27/2016 1:40p Cardiology Office Ashley Wetzel 59249 I25.119 Reymundo, MSN, DIRECTOR OF LABOR RELATIONS E78.5 I10 E66.01 Office Visit 11/19/2015 8:30a Cardiology Office Ashley Wetzel 16470 I25.119 Reymundo, MSN, DIRECTOR OF LABOR RELATIONS E78.5 I10 E66.01 Office Visit 05/19/2015 1:40p Cardiology Office Ashley Wetzel Reymundo, 38958 780.4 MSN, DIRECTOR OF LABOR RELATIONS 413.9 414.01 272.4 401.1 780.56 278.01 Office Visit 12/07/2014 5:56p Cardiology Office Konrad Johnston 32033 786.50 MKaylee, [facility] Office Visit 12/07/2014 3:49p [facility] Anthony Larsen M.D. 74722 786.50 [facility] Office Visit 11/11/2014 1:40p Cardiology Office Kari Wetzela 68376 413.9 Reymundo, ECTOR, DIRECTOR OF LABOR RELATIONS 414.01 272.4 401.1 780.56 Office Visit 08/12/2014 11:00a Cardiology Office Konrad Johnston 17259 413.9 MBinuDBinu, FAC 414.01 272.4 401.1 Office Visit 07/27/2014 1:25p Cardiology [place] [address] 786.50 Office Visit 06/12/2014 3:20p Cardiology Office Konrad Johnston 07553 414.01 M.DBinu, FACC 413.9 272.4 401.1 278.01 Office Visit 03/02/2014 2:20p Cardiology Office WetzelAshley 46845 414.01 MSN, DIRECTOR OF LABOR RELATIONS 272.4 401.1 278.01 780.56 Office Visit 08/19/2013 10:10a Cardiology Office Konrad Johnston 49753 414.01 M.DBinu, FACC 278.01 401.1 Office Visit 03/18/2013 11:20a Cardiology Office Konrad Johnston 04163 414.01 M.D., FACC 401.1 272.4 278.01 780.56 Office Visit 12/18/2012 1:20p Cardiology Office Ashley Wetzel Reymundo, 12708 414.01 MSN, DIRECTOR OF LABOR RELATIONS 401.1 272.4 278.01 Office Visit 11/21/2012 9:04a Cardiology Office Konrad Johnston, 19141 413.9 M.D., FACC Office Visit 09/13/2012 2:00p Cardiology Office Konrad Johnston, 74115 413.9 M.D., FACC 414.01 401.1 272.4 Office Visit 08/13/2012 1:00p Cardiology Office WetzelAshley, 72583 413.9 MSN, DIRECTOR OF LABOR RELATIONS 414.01 401.1 272.4 278.01 Office Visit 02/07/2012 11:40a Cardiology Office Konrad Johnston, 12466 413.9 M.DBinu, FACC 414.01 401.1 272.4 Office Visit 01/30/2012 2:20p Cardiology Office WetzelAshley, 02636 413.9 MSN, DIRECTOR OF LABOR RELATIONS 414.01 401.1 272.4 278.01 Office Visit 09/13/2011 1:00p Cardiology Office WetzelAshley, 05918 413.9 MSN, DIRECTOR OF LABOR RELATIONS 414.01 401.1 272.4 278.01 Office Visit 08/08/2011 1:40p Cardiology Office Konrad Johnston, 51231 414.01 MBinuDBinu, FACC 401.1 272.4 413.9 Office Visit 07/20/2011 1:20p Cardiology Office Ashley Wetzel, 14792 786.50 MSN, DIRECTOR OF LABOR RELATIONS 782.0 414.01 401.1 272.4 Office Visit 05/10/2011 1:20p Cardiology Office Konrad Johnston, 99818 414.01 M.DBinu, FACC 401.1 272.4 786.05 682.6 Office Visit 01/04/2011 1:40p Cardiology Office Ashley Wetzel, 39865 786.51 MSN, DIRECTOR OF LABOR RELATIONS 414.01 401.1 272.4 785.9 Office Visit 12/22/2010 1:00p Cardiology Office Ashley Wetzel, 30055 786.51 MSN, DIRECTOR OF LABOR RELATIONS 414.01 401.1 272.4 785.9 Office Visit 12/07/2010 11:20a Cardiology Office Konrad JohnstonBinu, 35453 786.51 M.D., FACC 414.01 401.1 272.4 Office Visit 12/11/2008 9:30a Cardiology Office Alok Johnstonclovis Geronimo, 97578 786.51 M.D., FACC 414.01 Office Visit 11/17/2008 9:15a Cardiology Office PrestonKonrad, 83802 413.9 M.D., FACC 414.01 401.1 272.4 Office Visit 05/20/2008 1:45p Cardiology Office SinanmariaKonrad, 97110 414.01 M.D., FACC 401.1 272.4 Office Visit 04/15/2008 11:30a Cardiology Office PrestonKonrad, 01991 414.01 M.D., FACC 786.51 Office Visit 04/30/2007 1:00p Operating Room Albin Gasca M.D. 05333 472.0 473.2 473.0 Office Visit 02/08/2007 2:00p Operating Room Albin Gasca M.D. 45064 472.0 473.0 Plan of Care Future Appointment(s):08/22/2018 3:20 pm - Ashley Wetzel, MSN, DIRECTOR OF LABOR RELATIONS at Cardiology Bvkpcb8205/22/2018 - Ashley Wetzel, ECTOR, FNPI49.3 Ventricular premature depolarizationComments:Will monitor. No changes.R00.1 Bradycardia, unspecifiedComments:Monitor.I25.119 Athscl heart disease of [place] cor art w unsp ang pctrsComments:No changes.E78.5 Hyperlipidemia, unspecifiedComments:No changes.I10 Essential (primary) hypertensionComments:No changes.AllFollow up: Keep August as planned.
[2018-06-02 15:05] VITALS: BP 117/75
--- NOTE | 2018-06-02 15:18 | UC ---
Skin Complaint HPI - HPI Summary HPI Summary: Hit ponce a week ago and having trouble with it healing. No fever. - History of Current Complaint Stated Complaint: RIGHT LOWER LEG SKIN COMPLAINT Hx Obtained From: Patient Onset/Duration: Sudden Onset, Lasting Weeks - 09/11, Still Present Skin Exposure Onset/Duration: Weeks Ago - 09/11 Onset Severity: Mild Current Severity: None Pain Intensity: 0 Location: Discrete - right anterior ponce Aggravating Factor(s): Nothing Alleviating Factor(s): Nothing Associated Signs & Symptoms: Positive: Rash - right anterior ponce Related History: Trauma - bumped ponce - Allergy/Home Medications Allergies/Adverse Reactions: Allergies Allergy/AdvReac Type Severity Reaction Status Date / Time codeine Allergy See Comment Verified 06/02/18 14:50 Review of Systems Skin: Rash - purple discoloration on the right anterior ponce. Respiratory: Shortness Of Breath - over the last several months. 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 Is Patient Immunocompromised?: No All Other Systems Reviewed And Are Negative: Yes PMH/Surg Hx/FS Hx/Imm Hx Endocrine History: Diabetes Cardiovascular History: Cardiac Disease, Hypertension Other History Of: Anticoagulant Therapy - Surgical History Surgical History: Yes Surgery Procedure, Year, and Place: CARDIAC STENT X 8. RT ORIF ankle AND TIBIA. LT CLAVICLE ORIF. vasectomy. sinus surgeries x2 - Family History Known Family History: Positive: Cardiac Disease - Social History Occupation: Disabled Lives: With Family Alcohol Use: Rare Alcohol Amount: a few beers on the weekends Substance Use Type: None Smoking Status (MU): Former Smoker Type: Cigarettes Amount Used/How Often: 1.5 ppd Length of Time of Smoking/Using Tobacco: 20 + yrs Have You Smoked in the Last Year: No When Did the Patient Quit Smoking/Using Tobacco: 1996 - Immunization History Most Recent Influenza Vaccination: [id number] Most Recent Tetanus Shot: W/IN LAST 10 Most Recent Pneumonia Vaccination: NONE Vaccination Up to Date: Yes Physical Exam Triage Information Reviewed: Yes Appearance: Well-Appearing, No Pain Distress, Obese Vital Signs: Initial Vital Signs Temp 97.9 F 06/02/18 14:52 Pulse 37 06/02/18 14:52 Resp 18 06/02/18 14:52 BP 117/75 06/02/18 14:52 Pulse Ox 97 06/02/18 14:52 Vital Signs Reviewed: Yes Eyes: Positive: Conjunctiva Clear Neck exam: Normal Respiratory Exam: Normal Cardiovascular: Negative: RRR - bigeminy Musculoskeletal: Positive: Edema @ - bilateral 2+ pretibial edema. Neurological Exam: Normal Psychological Exam: Normal Skin: Positive: rashes - violaceous discoloration right anterior ponce. 1.5cm ulcer/ open wound. Course/Dx - Differential Diagnoses - Skin Complaint Differential Diagnoses: Allergic Reaction, Cellulitis, Erythema Multiforme, Impetigo - Diagnoses Provider Diagnoses: Necrobiosis lipoidica diabecorum. Venous stasis ulcer/ open wound right lower leg. edema legs. Discharge - Sign-Out/Discharge Documenting (check all that apply): Patient Departure All imaging exams completed and their final reports reviewed: No Studies - Discharge Plan Condition: Stable Disposition: HOME Prescriptions: Compress.stocking,Knee,Reg,Lrg [Relief Knee Open Toe] 1 each MC DAILY #2 each Mupirocin 2% OINT* [Bactroban 2 % Oint*] 1 applic TOPICAL BID #1 tube Patient Education Materials: Stasis Dermatitis (ED), Chronic Wound Care (ED) Referrals: Bia Whyte MD [Primary Care Provider] - 5 Days (recheck the wound) Additional Instructions: Use the antibiotic ointment with telfa, changing twice a day. Keep compression on the area to decrease the swelling which will speed healing. - Billing Disposition and Condition Condition: STABLE Disposition: Home
== END 2018-06-02 15:46 | disposition home or self-care (01) ==
LOC: UCCORT 13:52
DX: L92.1 Necrobiosis lipoidica, not elsewhere classified (principal); I83.018 Varicose veins of right lower extremity with ulcer other part of lower leg; R60.9 Edema, unspecified; L97.819 Non-pressure chronic ulcer of other part of right lower leg with unspecified severity; E11.9 Type 2 diabetes mellitus without complications; I10 Essential (primary) hypertension; Z88.5 Allergy status to narcotic agent
CPT/HCPCS: 93005; 99212; G0463

== ENCOUNTER 2018-12-20 05:30 | Day surgery (SDC) | payer BC ==
--- NOTE | 2018-12-16 10:39 | HP ---
Amended report to enter cosigning physician. PREOPERATIVE HISTORY AND PHYSICAL: DATE OF SURGERY/ADMISSION: 12/20/18 DATE OF OFFICE VISIT/ENCOUNTER: 12/02/18 ATTENDING SURGEON: Yola Grimaldo MD* (dictated by PORTER Andrade). PROCEDURES: Right wrist carpal tunnel release, excision of mass, right thumb. HISTORY OF PRESENT ILLNESS: This is a 58-year-old male who has had problems with carpal tunnel syndrome on the right for a couple of years now. He had an EMG/nerve conduction study performed in 2016 which showed median nerve compression at the right wrist. Symptoms have progressed over time and he has consented to proceed with surgical intervention for this problem. He recently underwent a left wrist carpal tunnel release and did quite well with that. Additionally, he complains of a small mass at the base of his right thumb that has been present for a few months. He would also like to have that removed. The patient has a cardiac history. He had an AL in 2004 and a cardiac stent placement as a result. He is on Plavix, so we will have him stop Plavix per order of his lamp replacer prior to surgery. We will get clearance from his lamp replacer, Dr. Johnston, prior to proceeding with surgery. PAST MEDICAL HISTORY: 1. Myocardial infarction in 2004. 2. Stomach ulcer/GERD. 3. Cerebrovascular disease. 4. Hypertension. 5. Hypercholesterolemia. 6. Diabetes mellitus 2. 7. History of lower leg cellulitis. PAST SURGICAL HISTORY: 1. Left carpal tunnel release. 2. Left ulnar nerve decompression. 3. Cardiac stent placement x8. 4. Vasectomy. 5. Right ankle surgery. 6. Sinus surgery x2. 7. Left clavicle open reduction and internal fixation. 8. Tonsillectomy. The patient denies any problems with anesthesia in the past. CURRENT MEDICATIONS: 1. Aspirin 825 mg daily. 2. Atorvastatin calcium 80 mg daily. 3. Clopidogrel 75 mg daily. 4. Isosorbide dinitrate 20 mg 1 tab twice daily. 5. Loratadine 10 mg daily p.r.n. for allergies. 6. Magnesium oxide 400 mg daily. 7. Metformin HCl 500 mg twice a day. 8. Multivitamin daily. 9. Pantoprazole sodium 40 mg daily. 10. Ramipril 10 mg daily. 11. Ranexa 1000 mg daily. ALLERGIES: CODEINE causes stomach distress. FAMILY HISTORY: Liver cancer and heart disease. SOCIAL HISTORY: The patient is employed by [employer]. He is a former smoker; he quit approximately 20 years ago. Prior to that, he smoked up to 2 packs per day and had done so since age 13. He denies recreational drug use. He drinks alcohol on occasion. REVIEW OF SYSTEMS: Negative for general, cephalic, cardiovascular, respiratory , GI, other musculoskeletal, integumentary, endocrine, neurologic and hematologic symptoms. Infectious Disease: Negative for MRSA, hepatitis C, HIV. PHYSICAL EXAMINATION GENERAL: Well-developed, well nourished 58-year-old male, in no acute distress. VITAL SIGNS: Height 5 feet 7-1/2 inches, weight 295 pounds. Pulse rate 60, blood pressure 116/72. HEENT: Normocephalic, atraumatic. Pupils are equal, round, and reactive to light and accommodation. Throat is clear. NECK: Supple. No palpable lymph nodes. PULMONARY: Lungs are clear to auscultation bilaterally. No wheezes, rales, or rhonchi. CARDIOVASCULAR: Regular rate and rhythm. S1, S2. No murmurs, rubs, or gallops. No edema. ABDOMEN: Positive bowel sounds, soft, nontender. MUSCULOSKELETAL: On exam of his right upper extremity, there is no visible thenar wasting, but there is weakness with thumb abduction. He has a positive Tinel sign at the median nerve at the wrist and a positive Phalen test. Sensation is intact to light touch throughout the hand. On the volar aspect of his thumb, there is a small palpable cystic MP flexion crease; it is tender to palpation. It does not affect range of motion. NEUROLOGIC: Alert and oriented x3. Cranial nerves II through XII are intact. IMPRESSION: 1. Right carpal tunnel syndrome. 2. Cyst, base of right thumb. PLAN: The patient is scheduled to undergo right wrist carpal tunnel release and excision of mass, right thumb, with Dr. Grimaldo on 12/20/18. He will return to the office in 10 days postop for followup and suture removal. A prescription for Ultracet was e-scribed to the patient's pharmacy for postoperative pain management. He will stop his Plavix prior to surgery per direction of his lamp replacer Dr. Johnston. We will also get clearance for surgery. PORTER ANDRADE [id number]/[facility] #: [id number] [facility]
[~2018-12-20 05:30] MED LIST: Buffered Lidocaine 1% SYRIN* 1 ML/SYRINGE INTRADERM ONE; Ondansetron TAB* 4 MG PO ONE
[2018-12-20] MEDS ORDERED: oxyCODONE TAB* 5 MG TAB PO PRN (05:55)
[2018-12-20] MEDS ORDERED: Naloxone* 0.4 MG/ML 1 ML VIAL IV PRN (05:55)
[2018-12-20] MEDS ORDERED: PROCHLORPERAZINE INJ 5 MG/ML 2 ML VIAL IV PRN (05:55)
[2018-12-20] MEDS ORDERED: DiMENhydriNATE IV* 50 MG/ML VIAL IV PUSH PRN (05:55)
[2018-12-20] MEDS ORDERED: Famotidine IV* 10 MG/ML 2 ML (20 mg) IV ONE (06:00)
[2018-12-20] MEDS ORDERED: Lactated Ringers 1000 ML Bag* 1,000 ML IV SCH (06:00)
[2018-12-20] MEDS ORDERED: Ondansetron ODT TAB* 4 MG ONE (06:28)
[2018-12-20] MEDS ORDERED: Famotidine IV* 10 MG/ML 2 ML (20 mg) ONE (06:28)
[2018-12-20] MEDS ORDERED: Lidocaine 1% INJ* 10 MG/ML 30 ML SDV ONE (07:11)
[2018-12-20] MEDS ORDERED: Midazolam* 1 MG/ML 5 ML VIAL (5 MG) ONE (07:22)
[2018-12-20] MEDS ORDERED: fentaNYL* 50 MCG/ML 2 ML VIAL (100 MCG VIAL) ONE (07:22)
[2018-12-20] MEDS ORDERED: Midazolam* 1 MG/ML 2 ML VIAL (2 MG) ONE (07:48)
[2018-12-20 09:15] VITALS: BP 127/72
--- NOTE | 2018-12-20 12:53 | OP ---
CC: Dr. Grimaldo OPERATIVE NOTE: DATE OF OPERATION: 12/20/18 DATE OF : 58 SURGEON: Yola Grimaldo MD QUILTING MACHINE OPERATOR: PORTER Andrade ANESTHESIA: Local MAC. PRE-OP DIAGNOSES: Right carpal tunnel syndrome and right thumb mass. POST-OP DIAGNOSES: Right carpal tunnel syndrome and right thumb digital nerve compression. OPERATIVE PROCEDURE: Right thumb digital nerve decompression and right carpal tunnel release. ESTIMATED BLOOD LOSS: Zero. TOURNIQUET TIME: About 15 minutes. INDICATIONS FOR PROCEDURE: Landen is a 58-year-old man who has a palpable lump, which is bothersome at the MP flexion crease of his right thumb and he also has right carpal tunnel syndrome. He presents for mass excision and right carpal tunnel release. DESCRIPTION OF PROCEDURE: The patient was brought to the operating room and was given a sedation ane sthetic and a local infiltration of 10 cc of 1% plain lidocaine in the palm of the right hand. The s kin of his right hand and forearm was prepped and draped in the usual sterile fashion. The hand and forearm were exsanguinated and the tourniquet elevated to 250 mmHg. A transverse incision was made, centered over the palpable mass. We dissected through the subcutaneous tissue, what is found was meghana t the digital nerve on the radial aspect of the thumb had some fusiform swelling, there was no discre te mass, carefully dissected through the endoneurium and there was not a schwannoma visible. The ner ve was decompressed and I did not find any specific mass to remove. The nerve appeared relatively no rmal aside from being enlarged; therefore, I did not biopsy the nerve. The wound was irrigated and t he skin edges reapproximated with 4-0 nylon suture. Next, a longitudinal incision was made in the pa lm in line with the ring finger. We dissected through the subcutaneous tissue down to the transverse carpal ligament. The ligament was divided sharply with a knife and then more proximally with the sci ssors. The nerve was dissected free from the surrounding tissue and there was an area of moderate co mpression in the mid portion of the ligament. The wound was irrigated and the skin edges were reappr oximated with 4-0 nylon suture. The wound was dressed with Xeroform, 4x4, Webril, and an Archie wrap. The patient tolerated the procedure well and was brought to the recovery room in good condition. [id number]/[facility] #: [id number]
== END 2018-12-20 09:22 | disposition home or self-care (01) ==
LOC: OR 05:30
PROVIDERS: ATTEND Orthopaedic Surgery
DX: G56.01 Carpal tunnel syndrome, right upper limb (principal); G56.81 Other specified mononeuropathies of right upper limb; I25.2 Old myocardial infarction; Z95.5 Presence of coronary angioplasty implant and graft; I10 Essential (primary) hypertension; I49.3 Ventricular premature depolarization; E78.00 Pure hypercholesterolemia, unspecified; E11.9 Type 2 diabetes mellitus without complications; Z79.84 Long term (current) use of oral hypoglycemic drugs; Z87.891 Personal history of nicotine dependence
CPT/HCPCS: A9270-GY; J2250; J3010